=== PATIENT | male | born 2000 | race American Indian/Alaskan Native ===

== ENCOUNTER 2023-06-22 12:40 | Emergency (ER) | payer OTHER, SELFPAY ==
[2023-06-22] VITALS (9 sets, daily range): BP systolic 122–140; BP diastolic 65–74; PULSE 72–90; RESP 18–22; O2SAT 96–100
--- NOTE | 2023-06-22 12:58 | ED_ITS ---
HPI - General Adult General Chief complaint: Trauma Stated complaint: cut foot with chainsaw Time Seen by Provider: 06/22/23 12:58 Source: patient Mode of arrival: Wheelchair History of Present Illness HPI narrative: Patient is a 22-year-old male. He is up-to-date on his tetanus. Is here for evaluation of a chain saw cut wound to his left foot. He was wearing shoes at the time. He was at work when the event happened. He did place a tourniquet around his leg with a belt prior to arrival. This was removed upon arrival. No other injuries from the event. Related Data Previous Rx's Medication Instructions Recorded cephalexin 500 mg capsule 500 mg PO BID 7 days #14 caps 06/22/23 Allergies Allergy/AdvReac Type Severity Reaction Status Date / Time No Known Drug Allergies Allergy Verified 06/22/23 13:00 Review of Systems Constitutional Constitutional: Reports system reviewed and no additional complaints, except as documented Musculoskeletal Musculoskeletal: Reports system reviewed and no additional complaints, except as documented Integumentary/Breasts Skin/Breast: Reports system reviewed and no additional complaints, except as documented Neurologic Neurologic: Reports system reviewed and no additional complaints, except as documented Hematologic/Lymphatic On Anticoagulants: No Exam Initial Vital Signs Initial Vital Signs: Vital Signs Pulse Rate 80 06/22/23 12:43 Respiratory Rate 22 06/22/23 12:43 Pulse Oximetry 99 06/22/23 12:43 Cardio Pulses: dorsalis pedis present on the left Skin Other: Patient with a an 8 cm irregular cut to the dorsum of the left midfoot. Neuro Sensory Exam: no sensory deficits noted Extrem Other: Left ankle is unremarkable. Cut to the dorsum/medial aspect of the right midfoot. Procedures Laceration Repair Laceration 1: Site: other (Foot) Side (If applicable): left Size (cm): 6 Description: linear Depth: simple, single layer Local Anesthetic: lidocaine 1% and with epi Amount of anesthesia used (mL): 6 Pre-repair: wound explored and irrigated extensively Skin layer closed with: nylon Skin layer suture size: 5-0 Number of sutures: 8 Technique: simple, interrupted Course Orders Ordered: ED Orders 06/22/23 12:57 XR foot LT min 3V Stat Vital Signs Vital signs: Vital Signs - 8 hr 06/22/23 12:43 06/22/23 12:45 06/22/23 12:45 Pulse Rate 80 73 Respiratory Rate 22 Blood Pressure 138/72 Pulse Oximetry 99 100 Oxygen Delivery Method Room Air 06/22/23 12:47 06/22/23 13:00 06/22/23 13:26 Pulse Rate 72 90 Respiratory Rate 18 20 Blood Pressure 138/72 130/74 Pulse Oximetry 100 99 Oxygen Delivery Method Room Air Room Air 06/22/23 13:26 06/22/23 13:30 06/22/23 13:30 Pulse Rate 85 89 Respiratory Rate Blood Pressure 133/72 Pulse Oximetry 100 100 Oxygen Delivery Method Room Air Medical Decision Making Imaging Data Extremity x-ray #1: Radiologist's Impression: PROCEDURE: XR FOOT LT MIN 3V INDICATIONS: chain saw to left foot TECHNIQUE: 3 views of the foot were acquired. COMPARISON: None. FINDINGS: Bones: Linear defect in the medial aspect of the medial cuneiform tarsal bone associated with soft tissue defect consistent with history. Soft tissues: Small 2 mm calcific density in the soft tissue laceration IMPRESSION: Medial soft tissue laceration associated with small calcific density which may reflect bone fragment or foreign body Linear defect in the medial cuneiform tarsal bone MDM Narrative Medical decision making narrative: Patient is neurovascularly intact. His wound was irrigated extensively. I do suspect that there is potentially some damage to the ligaments between the bones in his medial forefoot although he can flex in his stent in his ankle and flex and extend it is great and 2nd toe without any issues. Did put some stitches in place. There was no overt fracture on exam potentially some fracture on the x- ray. We will place him in an orthopedic boot. He is up-to-date on his tetanus. I will place him on antibiotics given the nature of the wound. The skin was closed as described above. Will have him follow-up with orthopedics. He was given return precautions. He expressed understanding and agreement. Discharge Plan Departure Patient Disposition: Home Clinical Impression: Foot laceration Instructions: DI for Laceration Repair Activity Restrictions/Additional Instructions: The stitches do need to be removed in 7-10 days. Until then you can shower like normal however do not soak your foot an anything until the wound is healed. Please take the antibiotics as directed. You can take the boot off to shower i nto sleep however if your up walking than you do need to wear this. I do recommend that you follow-up with the orthopedic doctors as provided below. Return to the emergency department for new or worsening symptoms. Prescriptions: New cephalexin 500 mg capsule 500 mg PO BID 7 Days Qty: 14 0RF Referrals: Rachel Ponce MD [Physician] - Miscellaneous,MD Ko [Primary Care Provider] - Stand Alone Forms: Patient Portal/API
--- NOTE | 2023-06-22 13:30 | PC.NURSE ---
Patient tolerated wound cleansing with room temperature soapy water. Wound was rinsed with sterile water after cleansing. Pt states his pain is minimal at a 2\10 and the wound area feels numb.
[2023-06-22] MEDS: BACITRACIN OINT 0.9 GM PCKT 1 APPLIC TOP (15:06)
--- NOTE | 2023-06-22 15:26 | PC.NURSE ---
Patient's foot wound had bacitracin applied, nonstick guaz, and wrapped with andrew wrap. Patient given instructions for keeping wound clean, along with how to put new dressings on. Ortho boot applied and patient able to stand with boot. Patient wheelchaired to vehicle.
== END 2023-06-22 15:25 | disposition home or self-care (01) ==
PROVIDERS: Emergency Provider Emergency Medicine
DX: S91.312A Laceration without foreign body, left foot, initial encounter (principal); W29.3XXA Contact with powered garden and outdoor hand tools and machinery, initial encounter; Y99.0 Civilian activity done for income or pay
CPT/HCPCS: 12002; 73630; 99283; 99284